=== PATIENT | female | born 1970 | race Caucasian/White ===

== ENCOUNTER 2018-07-11 08:38 | Day surgery (SDC) | payer OTHER | END 2018-07-11 16:35 | disposition home or self-care (01) | LOC: AMB-ENDOS 08:38 | DX: K92.1 Melena (principal); K64.1 Second degree hemorrhoids; Z12.11 Encounter for screening for malignant neoplasm of colon ==

== ENCOUNTER 2022-10-10 08:30 | Inpatient (IN) | payer OTHER ==
[~2022-10-10] VITALS: Ht 167.6 cm; Wt 65.3 kg
== END 2022-10-19 13:35 | disposition home or self-care (01) | DRG 330 ==
LOC: SURH 10-16 08:30 → O/R 10-16 08:56 → SURH 10-16 18:15 → MEDJ 10-16 19:47 → O/R 10-16 20:18 → SURH 10-16 23:53
PROVIDERS: ADMIT Colon & Rectal Surgery; ATTEND Colon & Rectal Surgery
PROC: 0DBP4ZZ Excision of Rectum, Percutaneous Endoscopic Approach (ICD-10-PCS; 2022-10-16)
PROC: 0DJD8ZZ Inspection of Lower Intestinal Tract, Via Natural or Artificial Opening Endoscopic (ICD-10-PCS; 2022-10-16)
PROC: 0DTN4ZZ Resection of Sigmoid Colon, Percutaneous Endoscopic Approach (ICD-10-PCS; principal; 2022-10-16 18:15)
DX: K59.09 Other constipation (principal); K92.1 Melena; K63.89 Other specified diseases of intestine; Z86.010 Personal history of colon polyps

== ENCOUNTER 2022-11-14 15:37 | Inpatient (IN) | payer OTHER ==
[~2022-11-14] VITALS: Ht 162.6 cm; Wt 168.7 kg
--- NOTE | 2022-11-14 15:42 | NUR ---
PTE ALERTA Y ORIENTADA POR MARGUERITE ESFERAS CON BUEN PATRON RESPIRATORIO. REFIERE QUE DESDE JOSÉ TIENE DOLOR ABDOMINAL, LE REALIZARON UN ESTUDIO POR EL CUAL ENCONTRARON QUE ESTA OBSTRUIDA GI. PTE ES DE .
--- NOTE | 2022-11-14 17:05 | NUR ---
SE EDUCA A PTE SOBRE TX MEDICO ESTA REFIERE ENTENDER. SE CHRISTA MUESTRAS DE LABORATORIO UTILIZANDO MEDIDAS ASEPTICAS. SE COLOCA H/L APTE Y SE ADMINISTRAN MEDICAMENTOS LOS CUALES TOLERA. SE NOTIFICA ESTUDIO DE CT PENDIENTE A REALIZAR. PTE SE CONTINUA MONITORIANDO POR CAMBIOS.
[2022-11-16] MEDS ORDERED: ABATINEX680 MG (15:20)
[2022-11-16] MEDS ORDERED: FUSION PLUS CA1 EACH (15:20)
[2022-11-16] MEDS ORDERED: ABANEU-SL TABL1 EACH (15:20)
== END 2022-11-24 19:13 | disposition home or self-care (01) | DRG 389 ==
LOC: ER 15:37 → SURH 18:00
PROVIDERS: ADMIT Colon & Rectal Surgery; ATTEND Colon & Rectal Surgery
PROC: 0D9670Z Drainage of Stomach with Drainage Device, Via Natural or Artificial Opening (ICD-10-PCS; principal; 2022-11-14)
PROC: BW21ZZZ Computerized Tomography (CT Scan) of Abdomen and Pelvis (ICD-10-PCS; 2022-11-15)
PROC: BD49ZZZ Ultrasonography of Duodenum (ICD-10-PCS; 2022-11-21)
DX: K91.30 Postprocedural intestinal obstruction, unspecified as to partial versus complete (principal); K92.1 Melena; K59.00 Constipation, unspecified; E16.2 Hypoglycemia, unspecified; K64.2 Third degree hemorrhoids; Z86.010 Personal history of colon polyps